=== PATIENT | male | born 1985 | race Caucasian/White ===

== ENCOUNTER 2023-09-10 14:48 | Inpatient (IN) | payer BC ==
[2023-09-10] MEDS ORDERED: SODIUM CHLORIDE 2,654 ML IV ONE (15:34)
[2023-09-10] MEDS ORDERED: ACETAMINOPHEN 1000 MG/100 ML BAG IVPB ONE (15:41)
[2023-09-10] MEDS ORDERED: ACETAMINOPHEN INJECTION 100 ML IVPB ONE (15:51)
[2023-09-10 16:25] LABS: VENOUS BASE EXCESS 0.7 mmol/L (-2-2); VENOUS O2 SATURATION 29.9 % (70-80); VENOUS PH 7.396 (7.310-7.410)
[2023-09-10 16:26] LABS: BASO % 0.2 % (0-2.0); HEMATOCRIT 42.1 % (35.4-49); HEMOGLOBIN 13.7 GM/dL (11.7-16.9); LYMPH % 15.2 % (8-40); MCH 28.2 pg (25.7-33.7); MCHC 32.5 g/dl (32.0-35.9); MEAN CELL VOLUME 86.7 fl (80-96); MEAN PLT VOLUME 7.8 fl (7.5-11.1); MONO % 10.5 % (3.8-10.2); NEUT % 74.1 % (42.8-82.8); PLATELET COUNT 148 10^3/uL (134-434); RBC 4.86 M/mm3 (4.00-5.60); RDW 13.3 % (11.9-15.9); WHITE BLOOD COUNT 4.5 K/mm3 (4.0-10.0)
[2023-09-10 16:34] LABS: INR 1.26 (0.83-1.09); PROTHROMBIN TIME (PATIENT) 14.6 SEC (9.7-13.0)
[2023-09-10 16:37] LABS: ACTIVATED PTT 30.1 SECONDS (25.2-36.5)
[2023-09-10 17:17] LABS: CALCIUM 8.1 mg/dL (8.5-10.1)
[2023-09-10 17:18] LABS: ALBUMIN 3.3 g/dl (3.4-5.0); BLOOD UREA NITROGEN 18.9 mg/dL (7-18)
[2023-09-10 17:20] LABS: BILIRUBIN,TOTAL 0.6 mg/dL (0.2-1); TOT PROT 6.2 g/dl (6.4-8.2)
[2023-09-10 17:25] LABS: CREATININE 1.2 mg/dL (0.55-1.3)
[2023-09-10] MEDS ORDERED: OSELTAMIVIR PHOSPHATE 75 MG CAPSULE PO ONE (17:33)
[2023-09-10] MEDS ORDERED: OSELTAMIVIR PHOSPHATE 75 MG CAPSULE ONE (18:01)
[2023-09-10] MEDS ORDERED: ALBUTEROL SO4 0.042% IH SOL 1.25 MG/3 ML VIAL.NEB NEB PRN (18:58)
[2023-09-10] MEDS ORDERED: AZITHROMYCIN 250 MG TABLET PO ONE (18:58)
[2023-09-10] MEDS ORDERED: PANTOPRAZOLE 40 MG TABLET PO ONE ×2 (19:30→21:12)
[2023-09-10] MEDS ORDERED: CEFTRIAXONE 1 GM in DEXTROSE 5%-WATER - 50 ML IVPB ONE (19:30)
[2023-09-10] MEDS ORDERED: CEFTRIAXONE 1 GM/50 ML BAG ONE (21:12)
[2023-09-10] MEDS ORDERED: methylPREDNISolone NA SUCC 40 MG/1 ML VIAL ONE (21:12)
[2023-09-10] MEDS ORDERED: AZITHROMYCIN 500 MG TABLET ONE (21:12)
[2023-09-10] MEDS: methylPREDNISolone NA SUCC 40 MG/1 ML VIAL IVPUSH SCH (21:25)
[2023-09-10] MEDS ORDERED: ENOXAPARIN NA (PORCINE) 80 MG/0.8 ML DISP.SYRIN SQ SCH (22:00)
[2023-09-10] MEDS: ACETAMINOPHEN 325 MG TABLET (FP) PO PRN (22:22)
[2023-09-10 23:42] LABS: URINE APPEARANCE CLEAR; URINE BILIRUBIN NEGATIVE (NEGATIVE); URINE COLOR YELLOW; URINE GLUCOSE (UA) NEGATIVE (NEGATIVE); URINE KETONE TRACE (NEGATIVE)
[2023-09-10 23:43] LABS: PH,URINE 5.5 (5.0-8.0); URINE LEUK ESTERASE NEGATIVE (NEGATIVE); URINE NITRITE NEGATIVE (NEGATIVE); URINE PROTEIN 30 (NEGATIVE); URINE UROBILINOGEN 0.2 mg/dL (0.2-1.0)
[2023-09-11 00:20] VITALS: BMI 29.0
[2023-09-11] MEDS ORDERED: IBUPROFEN 800 MG/8 ML IJ IVPB ONE (09:40)
[2023-09-11] MEDS ORDERED: SODIUM CHLORIDE 250 ML IV STA (09:41)
[2023-09-11] MEDS: SODIUM CHLORIDE 1,000 ML IV SCH ×2 (10:24→18:04)
[2023-09-11] MEDS: CEFTRIAXONE 1 GM in DEXTROSE 5%-WATER - 50 ML IVPB SCH (10:24)
[2023-09-11] MEDS: PANTOPRAZOLE 40 MG TABLET PO SCH (10:25)
[2023-09-11] MEDS: AZITHROMYCIN 250 MG TABLET PO SCH (10:25)
[2023-09-11] MEDS: OSELTAMIVIR PHOSPHATE 75 MG CAPSULE PO SCH ×2 (10:25→22:17)
[2023-09-11] MEDS: methylPREDNISolone NA SUCC 40 MG/1 ML VIAL IVPUSH SCH (10:26)
[2023-09-11 16:26] LABS: HEMATOCRIT 38.8 % (35.4-49); HEMOGLOBIN 12.6 GM/dL (11.7-16.9); MCH 28.1 pg (25.7-33.7); MCHC 32.6 g/dl (32.0-35.9); MEAN CELL VOLUME 86.4 fl (80-96); MEAN PLT VOLUME 7.9 fl (7.5-11.1); PLATELET COUNT 145 10^3/uL (134-434); RBC 4.49 M/mm3 (4.00-5.60); RDW 13.6 % (11.9-15.9); WHITE BLOOD COUNT 4.4 K/mm3 (4.0-10.0)
[2023-09-11 17:20] LABS: POTASSIUM 4.3 mmol/L (3.5-5.1)
[2023-09-11 17:22] LABS: ALBUMIN 2.7 g/dl (3.4-5.0); BLOOD UREA NITROGEN 18.6 mg/dL (7-18)
[2023-09-11 17:26] LABS: CREATININE 1.1 mg/dL (0.55-1.3)
[2023-09-11 17:28] LABS: BILIRUBIN,TOTAL 0.4 mg/dL (0.2-1); TOT PROT 5.6 g/dl (6.4-8.2)
[2023-09-11] MEDS: ENOXAPARIN NA (PORCINE) 40 MG/0.4 ML DISP.SYRIN SQ SCH (18:05)
[2023-09-11] MEDS ORDERED: ALBUTEROL SO4 2.5/IPRATROPIUM 0.5 INH SOL 3 ML VIAL.NEB. NEB PRN (19:37)
[2023-09-11] MEDS ORDERED: ENOXAPARIN NA (PORCINE) 40 MG/0.4 ML DISP.SYRIN SQ SCH (22:00)
[2023-09-11] MEDS: guaiFENesin 200 MG/10 ML 10 ML UNIT-DOSE CUPS PO PRN (22:17)
[2023-09-12] MEDS: guaiFENesin 200 MG/10 ML 10 ML UNIT-DOSE CUPS PO PRN (04:45)
[2023-09-12] MEDS: SODIUM CHLORIDE 1,000 ML IV SCH ×3 (05:05→18:09)
[2023-09-12] MEDS: ACETAMINOPHEN 325 MG TABLET (FP) PO PRN (07:16)
[2023-09-12] MEDS ORDERED: SODIUM CHLORIDE NASAL SPRAY 44 ML BOTTLE NS PRN (09:09)
[2023-09-12 10:21] LABS: HEMATOCRIT 37.5 % (35.4-49); HEMOGLOBIN 12.4 GM/dL (11.7-16.9); MCH 28.5 pg (25.7-33.7); MCHC 33.2 g/dl (32.0-35.9); MEAN CELL VOLUME 85.7 fl (80-96); MEAN PLT VOLUME 8.1 fl (7.5-11.1); PLATELET COUNT 139 10^3/uL (134-434); RBC 4.37 M/mm3 (4.00-5.60); RDW 13.3 % (11.9-15.9); WHITE BLOOD COUNT 5.6 K/mm3 (4.0-10.0)
[2023-09-12 10:40] LABS: ALBUMIN 2.5 g/dl (3.4-5.0); BLOOD UREA NITROGEN 16.7 mg/dL (7-18); CALCIUM 7.6 mg/dL (8.5-10.1); MAGNESIUM 1.8 mg/dL (1.8-2.4)
[2023-09-12] MEDS ORDERED: guaiFENesin/CODEINE 5 ML UNIT-DOSE CUPS PO PRN (10:41)
[2023-09-12 10:43] LABS: CREATININE 0.9 mg/dL (0.55-1.3)
[2023-09-12 10:44] LABS: BILIRUBIN,TOTAL 0.6 mg/dL (0.2-1); TOT PROT 5.2 g/dl (6.4-8.2)
[2023-09-12] MEDS: methylPREDNISolone NA SUCC 40 MG/1 ML VIAL IVPUSH SCH (11:14)
[2023-09-12] MEDS: ENOXAPARIN NA (PORCINE) 40 MG/0.4 ML DISP.SYRIN SQ SCH (11:14)
[2023-09-12] MEDS: OSELTAMIVIR PHOSPHATE 75 MG CAPSULE PO SCH ×2 (11:15→21:34)
[2023-09-12] MEDS: BENZONATATE 200 MG CAPSULE PO SCH ×2 (11:15→17:49)
[2023-09-12] MEDS: AZITHROMYCIN 250 MG TABLET PO SCH (11:15)
[2023-09-12] MEDS: PANTOPRAZOLE 40 MG TABLET PO SCH (11:15)
[2023-09-12] MEDS: CEFTRIAXONE 1 GM in DEXTROSE 5%-WATER - 50 ML IVPB SCH (11:16)
[2023-09-12] MEDS: guaiFENesin/CODEINE 5 ML UNIT-DOSE CUPS PO PRN (18:00)
[2023-09-13] MEDS: BENZONATATE 200 MG CAPSULE PO SCH ×2 (01:07→09:56)
[2023-09-13] MEDS: SODIUM CHLORIDE 1,000 ML IV SCH ×2 (06:33→09:57)
[2023-09-13 07:36] VITALS: BP 107/63; RESP 18; TEMP 98.3
[2023-09-13] MEDS: ENOXAPARIN NA (PORCINE) 40 MG/0.4 ML DISP.SYRIN SQ SCH ×2 (09:52→11:26)
[2023-09-13] MEDS: CEFTRIAXONE 1 GM in DEXTROSE 5%-WATER - 50 ML IVPB SCH (09:53)
[2023-09-13] MEDS: methylPREDNISolone NA SUCC 40 MG/1 ML VIAL IVPUSH SCH (09:55)
[2023-09-13] MEDS: PANTOPRAZOLE 40 MG TABLET PO SCH (09:56)
[2023-09-13] MEDS: AZITHROMYCIN 250 MG TABLET PO SCH (09:56)
[2023-09-13] MEDS: OSELTAMIVIR PHOSPHATE 75 MG CAPSULE PO SCH (09:57)
[2023-09-13] MEDS: guaiFENesin/CODEINE 5 ML UNIT-DOSE CUPS PO PRN (10:01)
[2023-09-13 11:20] VITALS: PULSE 65
== END 2023-09-13 11:49 | disposition home or self-care (01) | DRG 195 ==
LOC: JER 14:48 → JERBED 19:08 → J7W 22:01
PROVIDERS: ADMIT Family Medicine; ATTEND Family Medicine
DX: J10.00 Influenza due to other identified influenza virus with unspecified type of pneumonia (principal); R09.02 Hypoxemia
CPT/HCPCS: 0241U-QW; 36415; 71045-TC-FY; 71275-TC; 80053; 81003; 82550; 82553; 82803; 82962; 83605; 83735; 84443; 84484; 85025; 85027; 85379; 85610; 85730; 86850; 86900; 86901; 87040; 87070; 87086; 87205; 87651; 87899; 93005; 93010; 93970-TC; 94761; 99285-25; Q9967